=== PATIENT | male | born 1995 | race Caucasian/White ===

== ENCOUNTER 2016-10-04 07:40 | Emergency (ER) | payer BC ==
[~2016-10-04] VITALS: Ht 182.9 cm; Wt 121.3 kg
[~2016-10-04 07:40] MED LIST: NO KNOWN MEDICATIONS
[2016-10-04 07:42] VITALS: BP 152/85; PULSE 69; RESP 18; TEMP 98.9; O2SAT 97; Ht 182.9 cm; Wt 121.3 kg
--- OUTSIDE RECORDS SUMMARY | 2016-10-04 07:44 | XMS REPORT | Referral Summary ---
Author Author [facility], [facility] Organization 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 Name Role Phone Kaushik Chanel Primary Care Physician [phone] Encounter VC Date(s): 12/06/15 - 12/06/15 [facility] [address] [place] [address] [[email or web address] Discharge Diagnosis: Ingrown right big toenail Discharge Disposition: 01-Home or Self Care Attending Physician: Neal Clemens PA-C Admitting Physician: Neal Clemens PA-C Vital Signs Most recent to 1 oldest [Reference Range]: Temperature Tympanic 37.3 degC [36.6-38.1 degC] (12/06/15 5:46 PM) Peripheral Pulse 67 bpm Rate [60-100 bpm] (12/06/15 5:46 PM) Blood Pressure 136/78 mmHg [90-140/60-90 mmHg] (12/06/15 5:46 PM) SpO2 98 % (12/06/15 5:46 PM) Problem List Condition Effective Dates Status Health Status Informant Wrist fracture, 2008 Active right(Confirmed) Radius fracture - 02/08/10 Active R(Confirmed) Radius fracture - R 2011 Active distal(Confirmed) Meniscus tear - 03/31/08 Active L(Confirmed) Allergies, Adverse Reactions, Alerts Substance Reaction Severity Status penicillin Active Medications No Known Medications Results No data available for this section Immunizations Vaccine Date Refusal Reason tetanus-diphth toxoids (Td) adult/adol 01/16/05 Procedures Procedure Date Related Diagnosis Body Site Excision of nail and nail matrix, partial or 12/06/15 complete (eg, ingrown or deformed nail), for permanent removal; Removal of volar plate from R distal radius 2011 ORIF - R dis radius fx 02/10/10 Arthroplasty of knee - L PLM w/lat release FC 06/22/08 Buhr Arthroplasty of knee - L med men tear 03/31/08 Surgery - R wrist fx 07/18/07 Social History Social History Type Response Smoking Status Never smoker Assessment and Plan Extracted from: Title: R great toe ingrown Author: Neal Clemens PA-C Date: 12/06/15 Assessment/Plan Ingrown right big toenail Procedure:The webspace was cleansed with Betadine and a digital block was performed, the tourniquet was applied, following thisa [place] was used to dislodge themedial aspect of the right great toenail and it was removedatthe oh one quarter,the nailbed was checked in the entire nailoccluding that at the nailbed was removed,silver nitritewas applied to the nailbed toinhibit regrowth. At this point I do not feel antibiotics were indicated a patient of worsening signs of infection I requested he follow up. The wound was closedwith Xeroform and tube gauze patient was instructed tokeep feet clean and dry,wash daily reapply at the Xeroform and follow-up as needed. Recommended ibuprofen and Tylenol as needed for pain control. Work note provided-he works at [employer].
--- OUTSIDE RECORDS SUMMARY | 2016-10-04 07:44 | XMS REPORT | Continuity of Care Document ---
Author Author [facility] Organization [facility] Address Unknown Phone Unavailable Allergies Active Description Code Type Severity Reaction Onset Reported/Identified Relationship to Patient Clinical Status Yes penicillin NKMA N/A N/A 10/29/2013 Medications Problems Procedures Results Encounters ACCT No. Visit Date/Time Discharge Status Pt. Type Provider Facility Loc./Unit Complaint [id number] 12/06/2015 17:37:00 2015 23:59:00 DIS Outpatient Neal Clemens Via [facility] New IC RT TOE PAIN [id number] 05/20/2014 13:51:00 2013 23:59:00 DIS Outpatient Linnea Chapman Via [facility] New FM Hurts in chest when he swallows
--- OUTSIDE RECORDS SUMMARY | 2016-10-04 07:44 | XMS REPORT | Continuity of Care Document ---
Author Author [facility] Organization [facility] Address Unknown Phone Unavailable Support Name Relationship Address Phone TRINH FINE MD Caregiver [address] [place] [address] [place] [phone] AUDRA KAY MD Caregiver [facility] [address] [place] [phone] AUDRA VALERA Next Of Kin [address] [place], [place] [id number] Insurance Providers Payer Name Policy Number Subscriber Name Relationship [employer] Other [id number] Marion Valera L 17 Child Advance Directives Directive Response Recorded Date/Time Ordered Resuscitation Status Full Code 05/25/14 2:09pm Problems Medical Problems Problem Onset Date Status Laceration of thumb Unknown Active Swallowing difficulty Unknown Active Medications Medication Dose Route Sig Days/Qty Instructions Order Date Discontinued Date Status Hydrocodone/Acetaminophen 5 Ml PO EVERY 4-6 HOURS PRN PAIN 50 Qty 05/22 Active Sucralfate 1 G PO FOUR TIMES DAILY 05/26/14 Active Social History Social History Problem Response Recorded Date/Time Smoking Status Never smoker 05/26/2014 11:50am Chewing Tobacco Status No 05/26/2014 11:50am Hx Substance Use No 05/26/2014 11:50am Hx Alcohol Use No 05/26/2014 11:50am Has the pt used tobacco in the last 12 months No 05/26/2014 11:50am Query Response Start Date Stop Date Smoking Status Never smoker Hospital Discharge Instructions No hospital discharge instructions. Plan of Care No plan of care. Functional Status Query Response Date Recorded Physical Hygiene Self May 22, 2014 10:34am Physical Hygiene Self May 22, 2014 10:34am Allergies, Adverse Reactions, Alerts Allergen Type Severity Reaction Status Last Updated Penicillin Allergy Unknown HIVES Active 05/22/14 Immunizations Name Given Type Hx Influenza Vaccination No Historical Hx Pneumococcal Vaccination No Historical Hx Tetanus, Diptheria, Pertussis No Historical Hx Influenza Vaccination No Historical Hx Tetanus, Diptheria, Pertussis No Historical Vital Signs Acute Vital Signs Vital Response Date/Time Temperature (Fahrenheit) 97.6 deg F (96.8 - 99.1) Temperature (Calculated Celsius) 36.20119 degrees C (36.0 - 37.3) Temperature Source Temporal Pulse Rate (adult) 60 bpm (60 - 100) Respiratory Rate 12 breaths/min (10 - 20) O2 Sat by Pulse Oximetry 95 % (90 - 100) Oxygen Delivery Method Room Air Blood Pressure 129/75 mm Hg Blood Pressure Source Automatic Cuff Height 6 ft 0 in Weight 222 lb Body Mass Index 30.0 kg/m^2 Results Name: DEMI VALERA Unit #: [id number] : 1995 Sex: M Loc / Svc: ED DOS: 05/22/14 Signed Report #: [id number] DIAGNOSTIC IMAGING REPORT TYPE OF EXAM: CHEST, PA & LATERAL Dictated By: GERI REDDY MD INDICATION: ITS.REASON: difficulty swallowing, lower esophageal pain CHEST 2-VIEWS UPRIGHT (PA & LAT): COMPARISON: None FINDINGS: The lungs are clear without evidence of focal abnormal airspace opacity. There is no pleural effusion or pneumothorax. The heart size, mediastinal contours and pulmonary vascularity are within normal limits. There is no significant skeletal abnormality. IMPRESSION: No acute cardiopulmonary disease. . Procedures Procedure Status Date Provider(s) RPR S/N/AX/GEN/TRNK 2.5CM/< completed 04/12/14 HENRY BRAVO MD CHEST X-RAY 2VW FRONTAL&LATL completed 05/22/14 CT THORAX W/O DYE completed 05/22/14 EMERGENCY DEPT VISIT completed 05/22/14 [id number] ITEM OR SERVICE completed 05/22/14 Esophagogastroduodenoscopy (EGD) with closed biopsy completed 05/26/14 AUDRA KAY MD Encounters Encounter Location Date/Time Departed Emergency Room [facility] 05/22/14 10:05am Departed Emergency Room [facility] 04/12/14 11:39am
--- OUTSIDE RECORDS SUMMARY | 2016-10-04 07:44 | XMS REPORT | Continuity of Care Document ---
Author Author [facility] Organization [facility] Address Unknown Phone Unavailable Support Name Relationship Address Phone HENRY BRAVO MD Caregiver [address] [place] [address] TRINH FINE MD Caregiver [address] [place], [place] [phone] AUDRA VALERA Next Of Kin [address] [place], [place] [id number] Insurance Providers Payer Name Policy Number Subscriber Name Relationship [employer] Other [id number] Marion Valera 19 Child Advance Directives Directive Response Recorded Date/Time Advanced Directives Type None 04/12/14 12:06pm Problems Medical Problems Problem Onset Date Status Laceration of thumb Unknown Active Medications Medication Dose Route Sig Days/Qty Instructions Order Date Discontinued Date Status [No Home Meds] 04/12/14 Active Social History Social History Problem Response Recorded Date/Time Smoking Status Never smoker 04/12/2014 12:01pm Hospital Discharge Instructions No hospital discharge instructions. Plan of Care No plan of care. Functional Status Query Response Date Recorded Physical Hygiene Self April 12, 2014 12:01pm Disabilities Visual April 12, 2014 12:01pm Devices Used None April 12, 2014 12:01pm Dressing Self April 12, 2014 12:01pm Ambulation Self April 12, 2014 12:01pm Diet Self April 12, 2014 12:01pm Mental Status Alert Oriented April 12, 2014 12:01pm Disabilities Visual April 12, 2014 12:01pm Devices Used None April 12, 2014 12:01pm Physical Hygiene Self April 12, 2014 12:01pm Dressing Self April 12, 2014 12:01pm Ambulation Self April 12, 2014 12:01pm Diet Self April 12, 2014 12:01pm Allergies, Adverse Reactions, Alerts Allergen Type Severity Reaction Status Last Updated Penicillin Allergy Unknown HIVES Active 04/12/14 Immunizations Name Given Type Hx Influenza Vaccination No Historical Hx Pneumococcal Vaccination No Historical Hx Tetanus, Diptheria, Pertussis N 4 YRS AGO PT "THINKS" Historical Hx Influenza Vaccination No Historical Hx Tetanus, Diptheria, Pertussis N 4 YRS AGO PT "THINKS" Historical Vital Signs Acute Vital Signs Vital Response Date/Time Temperature (Fahrenheit) 98.1 deg F (96.8 - 99.1) Temperature (Calculated Celsius) 36.13328 degrees C (36.0 - 37.3) Pulse Rate (adult) 64 bpm (60 - 100) Respiratory Rate 18 breaths/min (10 - 20) O2 Sat by Pulse Oximetry 97 % (90 - 100) Blood Pressure 155/75 mm Hg Height 6 ft 0 in Weight 227 lb Body Mass Index 30.0 kg/m^2 Results No known relevant diagnostic tests, laboratory data and/or discharge summary. Procedures No known history of procedures. Encounters Encounter Location Date/Time Departed Emergency Room [facility] 04/12/14 11:39am Recent Diagnosis
--- OUTSIDE RECORDS SUMMARY | 2016-10-04 07:48 | XMS REPORT | Continuity of Care Document ---
Author Author [place] [facility] Organization [facility] Address Unknown Phone Unavailable Support Name Relationship Address Phone HENRY BRAVO MD Caregiver [address] [place] [address] TRINH FINE MD Caregiver [address] [place], [place] [phone] AUDRA VALERA Next Of Kin [address] [place], [place] [id number] Insurance Providers Payer Name Policy Number Subscriber Name Relationship [employer] Other [id number] Marion Valera 17 Child Advance Directives Directive [...] F (96.8 - 99.1) Temperature (Calculated Celsius) 36.01297 degrees C (36.0 - 37.3) Pulse Rate [...] Encounters Encounter Location Date/Time Departed Emergency Room [facility] 04/12/14 11:39am Recent Diagnosis
--- OUTSIDE RECORDS SUMMARY | 2016-10-04 07:48 | XMS REPORT | Continuity of Care Document ---
Author Author [facility] Organization [facility] Address Unknown Phone Unavailable Support Name Relationship Address Phone TRINH FINE MD Caregiver [address] [place] [address] [place] [phone] AUDRA KAY MD Caregiver [facility] [address] [place] [phone] AUDRA VALERA Next Of Kin [address] [place], [place] [id number] Insurance Providers Payer Name Policy Number Subscriber Name Relationship [employer] Other [id number] Marion Valera L 17 Child Advance Directives [...] F (96.8 - 99.1) Temperature (Calculated Celsius) 36.20385 degrees C (36.0 - 37.3) Temperature Source [...] kg/m^2 Results Name: DEMI VALERA Unit #: [id number] : 1995 Sex: M Loc / Svc: ED DOS: 05/22/14 Signed Report #: [id number] DIAGNOSTIC IMAGING REPORT TYPE OF EXAM: CHEST, [...] completed 05/22/14 EMERGENCY DEPT VISIT completed 05/22/14 [id number] ITEM OR SERVICE completed 05/22/14 Esophagogastroduodenoscopy (EGD) with closed biopsy completed 05/26/14 AUDRA KAY MD Encounters Encounter Location Date/Time Departed Emergency Room [facility] 05/22/14 10:05am Departed Emergency Room [facility] 04/12/14 11:39am
--- OUTSIDE RECORDS SUMMARY | 2016-10-04 07:48 | XMS REPORT | Continuity of Care Document ---
Author Author [facility] Organization [facility] Address Unknown Phone Unavailable Allergies Active Description Code Type Severity Reaction Onset Reported/Identified Relationship to Patient Clinical Status Yes penicillin NKMA N/A N/A 10/29/2013 Medications Problems Procedures Results Encounters ACCT No. Visit Date/Time Discharge Status Pt. Type Provider Facility Loc./Unit Complaint [id number] 12/06/2015 17:37:00 2015 23:59:00 DIS Outpatient Neal Clemens Via [facility] New IC RT TOE PAIN [id number] 05/20/2014 13:51:00 2013 23:59:00 DIS Outpatient Linnea Chapman Via [facility] New FM Hurts in chest when he swallows
--- NOTE | 2016-10-04 08:00 | NUR ---
DR DR. FLORES IN TO SEE PT. REQUESTS FLURO STRIP AND IT WAS GIVEN.
--- NOTE | 2016-10-04 08:24 | ERPDOC ---
Departure Disposition Decision Date: Oct 04, 2016 Disposition Decision Time: 08:22 Disposition: 01 DISCHARGED HOME, SELF-CARE Impression Impression Impression: Primary Impression: Eye pain Qualified Codes: H57.12 - Ocular pain, left eye Severity: Mild Condition: Improved Seen By: Physician only Referrals: TRINH FINE MD (Family) POLI GASCA MD [address] Go directly to Dr. Gasca's office. Do not go anywhere else. Patient Instructions: Eye Pain (ED) Problems/Meds/Labs Reviewed?: Yes Medications reviewed and manag: Yes Follow up care ordered?: Yes Mental Status: Alert, Oriented HPI - EENT General General Chief Complaint: Eye Problems Stated Complaint: L EYE PAIN Time Seen by Provider: 07:43 Source: patient Exam Limitations: no limitations [facility] - EENT General Initial Comments 21 M presents to the emergency department with a chief complaint of pain in the left eye. Patient noted onset of symptoms upon awakening early this morning. Patient works as a metal miner blasting. Patient denies any foreign body sensation. There is a dull discomfort in his left eye. No radiation. It is mild. He notes that looking at light makes the discomfort worse. Patient denies any known trauma or injury. Patient does note that he was working with an acetylene torch yesterday with only safety glasses. He was at home when his symptoms began. Symptoms have been persistent in nature since onset. No other complaints or associated symptoms. Patient states that his tetanus status is current. Patient does wear contact lenses but there is no contact lens currently in the left eye. Occurred At: home Onset/Timing: Gradual Allergies: Coded Allergies: Penicillins (Unverified Allergy, Unknown, HIVES, 10/04/16) Past History Past Medical History Pt denies signifigant PMH Surgical History General: tonsils Joint: knee Family History Family History: Negative Vaccines Hx Influenza Vaccination: No Hx Pneumococcal Vaccination: No Hx Tetanus, Diptheria, Pertuss: No Social History Smoking Status: Never smoker Substance Use Type: does not use Alcohol Intake: none Review of Systems Constitutional Constitutional: DENIES: chills, fever Eyes General: erythema, DENIES: exudate, foreign body sensation Lids/Accessories: DENIES: erythema, swelling Vision: DENIES: acuity, blurring ENMT Ears: DENIES: drainage, erythema Hearing: DENIES: hearing loss Balance: DENIES: ataxia, falling to one side Sinuses: DENIES: congestion, pain Nose: DENIES: nosebleeds, pain Mouth/Throat: DENIES: painful swallowing, sore throat Teeth: DENIES: missing teeth, pain Jaw: DENIES: pain Cardiovascular Cardiac: DENIES: chest pain, dyspnea on exertion Rhythm/Rate: DENIES: irregular beat, palpitations Vascular: DENIES: pedal edema, unilateral swelling Pulmonary Respiratory: DENIES: cough, dyspnea, pleuritic chest pain, sputum GI Upper Abdomen: DENIES: nausea, pain, vomiting Lower Abdomen: DENIES: diarrhea, pain General: DENIES: dysuria, pain Male: DENIES: frequency, hesitancy Musculoskeletal General: DENIES: pain, tenderness Integumentary Skin: DENIES: itching, rash Neurological General: DENIES: headache, numbness, weakness Psychiatric Psychiatric: DENIES: depression, nervousness Endocrine Endocrine: DENIES: polydipsia, polyphagia Hematologic/Lymphatic Hematologic/Lymphatic: DENIES: frequent nosebleeds, lymphadenopathy Allergic/Immunological Allergic/Immunoligical: DENIES: allergic reactions, hives Physical Exam General General Nourishment: well nourished, well developed, appears stated age, no acute distress, adult General Body Habitus: well groomed Vitals and Pain First Documented Vital Signs Date Time Temp Pulse Resp B/P Pulse Ox O2 Delivery O2 Flow Rate FiO2 10/04/16 07:42 98.9 69 18 152/85 97 Room Air Weight: Kilograms: 121.300 Height (feet): 6 Height (inches): 0 Triage Pain Scale: RN VS reviewed by Provider: Yes Normal Exams: Head: Normocephalic w/o trauma Eyes: Pupils are PERRLA w/ EOMI, No scleral icterus ENMT: No facial trauma, nasal exudates, pharyngeal erythema, or exudates are noted Dental: No fractured, loose, or missing teeth noted Neck: Full range of motion, without adenopathy, JVD, bruits or thyromegaly Chest/Resp: Clear all dawson, with good airflow, and symmetry bilaterally CV: Regular rate and rhythm, without murmur or gallop, Pulses 2+ all extremities, capillary refill, <2 seconds all ext., no pedal edema noted Abdomen: Bowel sounds positive, soft, non-tender, non-distended, no hepatosplenomegaly, masses or bruits noted Lymphatic: No lymphadenopathy, or lymphedema noted Musculoskeletal: No tenderness, or deformity noted, good range of motion, all extremities Integumentary: No rashes, hives, or bruising noted, hair and nails, without abnormality Neurologic: Patient is alert, and oriented, cranial nerves, motor/sensory/ cerebellar, exams w/o gross deficits, to observation Psychiatric: Patient exhibits, appropriate attention, emotion and affect ENMT (brief) Comments L eye - pupil round equal and reactive to light. Extraocular movements are intact. Lids are everted and examined all dawson of extraocular motion without obvious foreign body. No proptosis. No globe injury. Normal lids and lashes. Intraocular pressure averages 18. Fluorescein dye uptake small amounts at 12: 00. Unremarkable slit lamp examination. No hyphema. + Injected conjunctiva. Otherwise unremarkable exam. Right eye - unremarkable examination Differential Diagnoses Considering: Other (foreign body/corneal abrasions/corneal ulcer/conjunctivitis ) Progress Results/Orders Orders Procedure Category Date Status Time Tetracaine 0.5% Eye PHA 10/04/16 Complete Drops (Tetracaine 0. 08:30 Fluorescein Sodium PHA 10/04/16 Complete (Ful-Jaye) 08:30 Medications Current ED Medications Tetracaine HCl (Tetracaine 0.5% Eye Drops) 1 drop O ONCE LEFT EYE Last administered on 10/04/16 08:27; Start 10/04/16 at 08:30; Stop 10/04/16 at 08:31; Status DC Fluorescein Sodium (Ful-Jaye) 1 mg O ONCE LEFT EYE Last administered on 08:00; Start 10/04/16 at 08:30; Stop 10/04/16 at 08:31; Status DC Progress Progress Tetanus status is current. Ophthalmologic examination is performed in the emergency Department. Patient is discussed with Dr. Gasca of ophthalmology and will be referred to his office immediately upon discharge from the emergency department for further evaluation and treatment. Patient is in agreement with the current plan of management. Patient is discharged home in improved condition. Dr. Gasca requests that no antibiotic ointment or drops be administered to the eye until after he completes his examination. Dr. Gasca will provide the patient with the appropriate antibiotic coverage at that time after his examination is completed. Patient verbalizes agreement and understanding. Patient is discharged and instructed to go directly to Dr. Gasca' s office. He is to go nowhere else. Patient is to follow up as instructed. He is to return to the emergency department if his condition worsens or changes in any manner. MARIA GUADALUPE FLORES DO Oct 04, 2016 08:24
--- NOTE | 2016-10-04 08:27 | NUR ---
MED TETRACAINE TO LT. EYE.
[2016-10-04] MEDS ORDERED: TETRACAINE 0.5% EYE DROPS 4ml BOTTLE LEFT EYE ONE (08:30)
[2016-10-04] MEDS ORDERED: FLUORESCEIN SODIUM 1 MG/STRIP LEFT EYE ONE (08:30)
--- NOTE | 2016-10-04 08:30 | NUR ---
DISMISSAL NOTE DISMISSAL INSTRUCTIONS GIVEN TO PT. AND NO FURHTER QUESTIONS. PT. TO FOLLOW UP WITH DR. GASCA, DIRECTIONS TO DR. GASCA'S OFFICE GIVEN.
== END 2016-10-04 08:30 | disposition home or self-care (01) ==
LOC: ED 07:40
DX: H57.12 Ocular pain, left eye (principal)